=== PATIENT | female | born 1975 | race Hispanic/Latino ===

== ENCOUNTER 2023-10-04 12:31 | Observation (INO) | payer OTHER ==
[~2023-10-04] VITALS: Ht 162.6 cm; Wt 75.0 kg
[2023-10-04] MEDS: MORPHINE 4 MG SYG IM ONE (13:38)
[2023-10-04] MEDS: KETOROLAC 60 MG VIAL (30MG/ML) IM ONE (13:38)
[2023-10-04] MEDS: ORPHENADRINE CITRATE 30 MG/ML ML IM ONE (13:38)
[2023-10-04 17:52] LABS: HEMATOCRIT 31.7 % (36-48); MEAN CORPUSCULAR HEMOGLOBIN 22.2 pg (27.0-33.0); MEAN CORPUSCULAR HGB CONC 30.9 g/dL (32.0-36.0); MEAN CORPUSCULAR VOLUME 71.7 fL (79-99); PLATELET COUNT (AUTO) 275 K/uL (130-400); RED BLOOD CELL COUNT(AUTO) 4.42 MIL/uL (4.00-5.50); RED CELL DISTRIBUTION WIDTH 15.9 % (11.0-15.5); WHITE BLOOD COUNT (AUTO) 8.2 K/uL (4.8-10.8)
[2023-10-04 18:06] LABS: CREATININE 0.8 mg/dL (0.5-1.0); POTASSIUM 4.3 mmol/L (3.5-5.1)
[2023-10-04] MEDS: MORPHINE 4 MG SYG IVP ONE (21:21)
[2023-10-04] MEDS ORDERED: IBUPROFEN 800 MG TAB PO PRN (22:30)
[2023-10-04] MEDS ORDERED: ONDANSETRON 4MG INJ IV PRN (22:30)
[2023-10-05] VITALS (8 sets, daily range): BP systolic 101–131; BP diastolic 70–89; PULSE 70–107; RESP 18–20; O2SAT 98–100
[2023-10-05] MEDS: KETOROLAC 15MG/ML VIAL (15MG/ML) IV PRN (00:37)
[2023-10-05 05:09] LABS: BASOPHILS # (AUTO) 0.05 K/uL (0.00-0.20); BASOPHILS % (AUTO) 0.7 % (0.0-5.0); EOSINOPHILS # (AUTO) 0.19 K/uL (0.00-0.70); EOSINOPHILS % (AUTO) 2.7 % (0.0-8.0); HEMATOCRIT 31.8 % (36-48); IMMATURE GRANULOCYTE ABSOLUTE 0.02 K/uL (0-1); LYMPHOCYTES # (AUTO) 2.4 K/uL (1.0-4.8); LYMPHOCYTES % (AUTO) 34.7 % (21.0-51.0); MEAN CORPUSCULAR HEMOGLOBIN 22.4 pg (27.0-33.0); MEAN CORPUSCULAR HGB CONC 30.5 g/dL (32.0-36.0); MEAN CORPUSCULAR VOLUME 73.4 fL (79-99); MONOCYTES # (AUTO) 0.7 K/uL (0.1-1.0); MONOCYTES % (AUTO) 10.2 % (3.0-13.0); NEUTROPHILS # (AUTO) 3.6 K/uL (1.8-7.7); NEUTROPHILS % (AUTO) 51.4 % (40.0-77.0); PLATELET COUNT (AUTO) 282 K/uL (130-400); RED BLOOD CELL COUNT(AUTO) 4.33 MIL/uL (4.00-5.50); RED CELL DISTRIBUTION WIDTH 16.4 % (11.0-15.5)
[2023-10-05 05:24] LABS: ALBUMIN 3.2 g/dL (3.5-5.0); BILIRUBIN,TOTAL 1.1 mg/dL (0.2-1.0); CREATININE 0.9 mg/dL (0.5-1.0); MAGNESIUM 2.6 mg/dL (1.80-2.40); POTASSIUM 4.2 mmol/L (3.5-5.1)
[2023-10-05 06:33] LABS: ERYTHROCYTE SEDIMENTATION RATE 8 MM/HR (0-20)
[2023-10-05] MEDS: FAMOTIDINE 20MG TAB PO SCH (09:31)
[2023-10-05 13:27] LABS: AMPHET/METH SCREEN,URINE NEGATIVE (NEGATIVE); BARBITURATE SCREEN, URINE NEGATIVE (NEGATIVE); BENZODIAZEPINES SCREEN,URINE NEGATIVE (NEGATIVE); CANNABINOID SCREEN,URINE NEGATIVE (NEGATIVE); COCAINE SCREEN,URINE NEGATIVE (NEGATIVE); OPIATE SCREEN,URINE POSITIVE (NEGATIVE); PHENCYCLIDINE SCREEN,URINE NEGATIVE (NEGATIVE)
[2023-10-06] VITALS: BP 118/70; PULSE 74; RESP 18
[2023-10-06 05:45] LABS: HEMATOCRIT 32.4 % (36-48); MEAN CORPUSCULAR HEMOGLOBIN 21.9 pg (27.0-33.0); MEAN CORPUSCULAR HGB CONC 29.6 g/dL (32.0-36.0); RED BLOOD CELL COUNT(AUTO) 4.38 MIL/uL (4.00-5.50); RED CELL DISTRIBUTION WIDTH 16.2 % (11.0-15.5); WHITE BLOOD COUNT (AUTO) 6.3 K/uL (4.8-10.8)
[2023-10-06 05:56] LABS: CREATININE 0.9 mg/dL (0.5-1.0); POTASSIUM 4.6 mmol/L (3.5-5.1)
[2023-10-06 06:03] VITALS: BP 127/68; PULSE 69; RESP 18
[2023-10-06 08:00] VITALS: BP 118/71; PULSE 79; RESP 18
[2023-10-06] MEDS: LIDOCAINE 4% ADH..PATCH TP SCH (08:46)
[2023-10-06 09:00] VITALS: O2SAT 97
[2023-10-06 12:00] VITALS: BP 118/72; PULSE 66; RESP 20
[2023-10-06] MEDS: ACETAMINOPHEN 325 MG TAB PO PRN (13:53)
[2023-10-06] MEDS ORDERED: LIDO1ADH71 TP (14:27)
[2023-10-06] MEDS ORDERED: IBUP-2077 PO (14:27)
[2023-10-06 16:16] VITALS: BP 107/71; PULSE 71; RESP 18
== END 2023-10-06 18:45 | disposition home or self-care (01) ==
LOC: EDH 12:31 → EDHIP 22:11 → 3CH 23:14
PROVIDERS: ADMIT Hospitalist; ATTEND Hospitalist
DX: M54.50 Low back pain, unspecified (principal); D64.9 Anemia, unspecified; D25.9 Leiomyoma of uterus, unspecified; J45.909 Unspecified asthma, uncomplicated; G89.29 Other chronic pain; M54.2 Cervicalgia; Z79.899 Other long term (current) drug therapy; Z98.890 Other specified postprocedural states
CPT/HCPCS: 96374; 96372; 99285; 80048 ×2; 85027 ×2; 36415 ×3; 72131; 72148; 96376; 96375; 83735; 80053; 80305; 85025; 85651; 97161; G0378 ×45; J2270 ×2; J1885 ×4; J2360